=== PATIENT | female | born 1995 | race Caucasian/White ===

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

== ENCOUNTER → 2017-01-12 | Outpatient (CLI) | payer OTHER ==
[2017-01-17 08:14] LABS: T PALLIDUM ANTIBODIES Positive (Negative)
== END ==
LOC: M SMT 11:47
PROVIDERS: ATTEND Advanced Practice Midwife
DX: O98.111 Syphilis complicating pregnancy, first trimester (principal)

== ENCOUNTER → 2017-02-17 | Outpatient (CLI) | payer OTHER ==
--- NOTE | 2017-02-17 11:37 | REP ---
OBSTETRIC SONOGRAPHY: HISTORY: Supervision of for anatomy. FINDINGS: Scanning through the gravid uterus demonstrates a viable single intrauterine gestation in a cephalic lie. motion is observed and heart rate is recorder 147 beats per minute. An anterior grade 0 placenta is seen without evidence of previa or abruption. Amniotic fluid is subjectively normal. Closed cervical length is 4.9 cm. No extrauterine abnormality is observed. No anomaly is seen. The following anatomic structures are identified and felt to be sonographically unremarkable: cranium, choroid plexus, cavum, cerebellum and posterior fossa, nuchal fold face and profile, lungs, four-chamber heart with left and right ventricular outflow tract views, diaphragm, left-sided stomach, abdominal wall cord insertion, three-vessel umbilical cord, kidneys and bladder, spine, upper and lower extremities. Biometry Chart: BPD 4.0 cm = 18 weeks 1 day HC 14.6 cm = 17 weeks 6 days AC 12.3 cm = 18 weeks 0 days FL 2.5 cm = 17 weeks 4 days CD 1.8 cm = 17 weeks 5 days HC/AC ratio normal 1.2 Cephalic index normal 0.75. Estimated weight 211 grams, 0 pounds 7 ounces, 36th percentile for 18 weeks 1 day. IMPRESSION: Viable single intrauterine gestation at 17 weeks 6 days by today's composite sonographic criteria. MARINA by today's sonography July 22, 2017. No anomaly is seen.
== END ==
LOC: M WHC 10:14
PROVIDERS: ATTEND Advanced Practice Midwife
DX: Z34.82 Encounter for supervision of other normal pregnancy, second trimester (principal)

== ENCOUNTER → 2017-04-13 | Outpatient (CLI) | payer OTHER ==
[2017-04-13 13:48] LABS: BASO % 0.3 % (0.0-1.0); EOS # 0.1 K/mm3 (0.0-0.50); LARGE UNSTAINED CELL # 0.1 K/mm3 (0.0-0.4); LARGE UNSTAINED CELL % 0.8 % (0.0-4.0); LYMPH # 1.9 K/mm3 (1.5-6.5); MEAN CORPUSCULAR HEMOGLOBIN 32.8 pg (27.0-33.0); MEAN CORPUSCULAR HGB CONC 33.7 g/dl (32.0-36.5); MEAN CORPUSCULAR VOLUME 97.4 fl (80.0-96.0); MONO # 0.5 K/mm3 (0.0-0.8); MONO % 4.2 % (0.0-5.0); NEUTROPHILS # 8.5 K/mm3 (1.8-7.7); NEUTROPHILS % 76.8 % (36.0-66.0); PLATELET COUNT, AUTOMATED 244 k/mm3 (150-450); RED CELL DISTRIBUTION WIDTH 12.8 % (11.5-14.5); WHITE BLOOD COUNT 11.1 K/mm3 (4.0-10.0)
[2017-04-18 08:06] LABS: T PALLIDUM ANTIBODIES Positive (Negative)
== END ==
LOC: M SMT 09:18
PROVIDERS: ATTEND Advanced Practice Midwife
DX: Z34.83 Encounter for supervision of other normal pregnancy, third trimester (principal)

== ENCOUNTER 2017-05-18 13:23 | Outpatient (CLI) | payer OTHER ==
[~2017-05-18] VITALS: Ht 165.1 cm; Wt 55.0 kg
[2017-05-18] VITALS (7 sets, daily range): BP systolic 106–124; BP diastolic 63–80
[2017-05-18] MEDS ORDERED: PRE-TAB3 PO (13:50)
[2017-05-18 15:32] LABS: MEAN CORPUSCULAR HEMOGLOBIN 32.9 pg (27.0-33.0); MEAN CORPUSCULAR VOLUME 93.9 fl (80.0-96.0); RED CELL DISTRIBUTION WIDTH 12.8 % (11.5-14.5)
[2017-05-18 15:49] LABS: INR 1.01
[2017-05-18] MEDS ORDERED: BETAMETHASONE SOLUSPAN 6MG/ML INJ 5ML (J0702) IM SCH (16:00)
[2017-05-18] MEDS ORDERED: PENICILLIN G POTASSIUM IV 5 MU in D5W MINI-BAG PLUS 100 ML IV STA (16:01)
[2017-05-18] MEDS ORDERED: LACTATED RINGER'S 1000 ML IV STA (16:01)
[2017-05-18] MEDS ORDERED: LR 1,000 ML IV SCH (16:01)
[2017-05-18 16:14] LABS: ALBUMIN 2.8 GM/DL (3.2-5.2); ALKALINE PHOSPHATASE 94 U/L (45-117); ALT/SGPT 11 U/L (12-78); ANION GAP 6 MEQ/L (8-16); AST/SGOT 13 U/L (15-37); BILIRUBIN,TOTAL 0.3 MG/DL (0.2-1.0); BLOOD UREA NITROGEN 4 MG/DL (7-18); CALCIUM LEVEL 8.9 MG/DL (8.5-10.1); CARBON DIOXIDE LEVEL 26 MEQ/L (21-32); CHLORIDE LEVEL 107 MEQ/L (98-107); CREATININE FOR GFR 0.54 MG/DL (0.55-1.02); GLUCOSE, FASTING 76 MG/DL (70-105); POTASSIUM SERUM 3.9 MEQ/L (3.5-5.1); SODIUM LEVEL 139 MEQ/L (136-145); TOTAL PROTEIN 6.3 GM/DL (6.4-8.2)
[2017-05-18] MEDS ORDERED: PENICILLIN G POTASSIUM IV 2.5 MU in D5W 100 ML IV SCH (20:15)
[2017-05-23 08:11] LABS: T PALLIDUM ANTIBODIES Positive (Negative)
== END 2017-05-18 22:20 | disposition home or self-care (01) ==
LOC: M LDO 13:23
PROVIDERS: ATTEND Obstetrics & Gynecology
DX: O62.0 Primary inadequate contractions (principal); O26.879 Cervical shortening, unspecified trimester; Z3A.31 31 weeks gestation of pregnancy; O98.113 Syphilis complicating pregnancy, third trimester; A53.0 Latent syphilis, unspecified as early or late; O99.343 Other mental disorders complicating pregnancy, third trimester; F41.0 Panic disorder [episodic paroxysmal anxiety]; O99.333 Smoking (tobacco) complicating pregnancy, third trimester; F17.210 Nicotine dependence, cigarettes, uncomplicated; O99.013 Anemia complicating pregnancy, third trimester; D64.9 Anemia, unspecified
CPT/HCPCS: 36415; 59025; 76815; 80053; 81001; 85027; 85384; 85460; 85610; 85730; 86592; 86780; 86850; 86900; 86901; 87081; 87086; 87491; 87591; 96372; 96374; J0702

== ENCOUNTER 2017-05-19 17:00 | Outpatient (CLI) | payer OTHER ==
[~2017-05-19] VITALS: Ht 165.1 cm; Wt 55.0 kg
[~2017-05-19 17:00] MED LIST: PRE-TAB3 PO
[2017-05-19 17:34] VITALS: BP 117/70
[2017-05-19] MEDS ORDERED: BETAMETHASONE SOLUSPAN 6MG/ML INJ 5ML (J0702) IM ONE (18:15)
== END 2017-05-19 18:33 | disposition home or self-care (01) ==
LOC: M LDO 17:00
PROVIDERS: ATTEND Specialist
DX: O26.873 Cervical shortening, third trimester (principal); Z3A.31 31 weeks gestation of pregnancy
CPT/HCPCS: 96372; J0702

== ENCOUNTER → 2017-06-28 | Outpatient (CLI) | payer OTHER ==
[~2017-06-28] MED LIST changes: +ACET50TA PO; +FERR325T3 PO; +HYDR-3713 PO; +IBUP-1114 PO; +PRENTAB9 PO
[2017-07-05 08:06] LABS: T PALLIDUM ANTIBODIES Positive (Negative)
== END ==
LOC: M SMT 14:35
PROVIDERS: ATTEND Advanced Practice Midwife
DX: Z34.83 Encounter for supervision of other normal pregnancy, third trimester (principal)

== ENCOUNTER 2017-07-27 12:19 | Inpatient (IN) | payer OTHER ==
[~2017-07-27] VITALS: Ht 165.1 cm; Wt 65.0 kg
[2017-07-27] VITALS (31 sets, daily range): BP systolic 114–153; BP diastolic 68–96
[~2017-07-27 12:19] MED LIST changes: -ACET50TA PO; -FERR325T3 PO; -HYDR-3713 PO; -IBUP-1114 PO; -PRENTAB9 PO
[2017-07-27] MEDS ORDERED: FERR325T3 PO (13:22)
[2017-07-27] MEDS ORDERED: HYDR-3713 PO (13:22)
[2017-07-27] MEDS ORDERED: PRENTAB9 PO (13:22)
[2017-07-27] MEDS ORDERED: LR 1,000 ML IV SCH (14:02)
[2017-07-27] MEDS ORDERED: OXYTOCIN DRIP 30 UNITS in APPROPRIATE DILUENT 1 EA IV SCH (14:15)
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
[2017-07-27 15:00] LABS: MEAN CORPUSCULAR HEMOGLOBIN 32.1 pg (27.0-33.0); MEAN CORPUSCULAR HGB CONC 34.1 g/dl (32.0-36.5); MEAN CORPUSCULAR VOLUME 94.2 fl (80.0-96.0); RED CELL DISTRIBUTION WIDTH 14.1 % (11.5-14.5); WHITE BLOOD COUNT 13.9 10^3/uL (4.0-10.0)
[2017-07-27] MEDS ORDERED: FENTANYL 2MCG/ML ROPIVACAINE 0.2% IN 0.9% NACL 200ML IVBAG As Ordered ONE (21:33)
[2017-07-27] MEDS ORDERED: diphenhydrAMINE INJ 50MG/ML VIAL (J1200) IV PRN (22:00)
[2017-07-27] MEDS ORDERED: ONDANSETRON 4MG/2ML VIAL (J2405) IV PRN (22:00)
[2017-07-27] MEDS ORDERED: EPIDURAL COMMENT XX SCH (22:00)
[2017-07-27] MEDS ORDERED: NALOXONE INJ 0.4 MG/1 ML VIAL (J2310) IV PRN (22:00)
[2017-07-27] MEDS ORDERED: LACTATED RINGER'S 1000 ML IV PRN (22:00)
[2017-07-27] MEDS ORDERED: FENTANYL/ROPIVACAINE/NACL BAG 200 ML EPIDURAL SCH (22:00)
[2017-07-27] MEDS ORDERED: ePHEDrine SULFATE 25 MG/5 ML(5MG/ML) SYRINGE IV PRN (22:00)
[2017-07-27] MEDS ORDERED: EPIDURAL/PCA KEYS XX PRN (22:00)
[2017-07-27] MEDS ORDERED: REFRIGERATOR IV KEYS XX PRN (22:00)
[2017-07-28 00:29] VITALS: BP 132/71
[2017-07-28 00:44] VITALS: BP 128/81
[2017-07-28 00:58] LABS: CORD GAS ABE A -7.1; CORD GAS HCO3 A 22.6 MEQ/L; CORD GAS O2 SAT A 28.3 %; CORD GAS PCO2 A 63.1 mmHg; CORD GAS PH A 7.171 UNITS; CORD GAS PO2 A 16.3 mmHg; CORD GAS SBC A 17.2 MEQ/L; CORD GAS TCO2 A 24.5 MEQ/L
[2017-07-28 00:59] VITALS: BP 129/72
[2017-07-28 01:00] LABS: CORD GAS ABE V -3.9; CORD GAS HCO3 V 22.9 MEQ/L; CORD GAS O2 SAT V 52.2 %; CORD GAS PCO2 V 48.2 mmHg; CORD GAS PH V 7.295 UNITS; CORD GAS PO2 V 22.4 mmHg; CORD GAS SBC V 20.2 MEQ/L; CORD GAS TCO2 V 24.4 MEQ/L
[2017-07-28] MEDS ORDERED: OXYTOCIN DRIP 30 UNITS in APPROPRIATE DILUENT 1 EA IV SCH (01:18)
[2017-07-28] MEDS ORDERED: DIBUCAINE 1% OINTMENT 30GM TOP PRN (01:30)
[2017-07-28] MEDS ORDERED: MEASLES,MUMPS,RUBELLA VACCINE INJ (MMR-II) (90707) SC SCH (01:30)
[2017-07-28] MEDS ORDERED: ACETAMINOPHEN 500 MG TAB PO PRN (01:30)
[2017-07-28] MEDS ORDERED: ANUSOL HC CREAM 30GM TOP PRN (01:30)
[2017-07-28] MEDS ORDERED: RHOGAM 300 MCG (1500 IU) INJ (J2790) IM SCH (01:30)
[2017-07-28] MEDS ORDERED: METHYLERGONOVINE MALEATE 0.2 MG TAB PO PRN (01:30)
[2017-07-28] MEDS ORDERED: DOCUSATE SODIUM 100 MG CAP PO PRN (01:30)
[2017-07-28] MEDS ORDERED: LIDOCAINE 1% MDV INJ 50 ML VIAL INFIL ONE (01:30)
[2017-07-28] MEDS ORDERED: ONDANSETRON 4MG/2ML VIAL (J2405) IV PRN (01:30)
[2017-07-28 02:15] VITALS: BP 124/74
--- NOTE | 2017-07-28 03:46 | DN ---
DATE OF SERVICE: 07/28/2017 Marina is a 22-year-old 1, para 1-0-0-1 now, who was admitted to labor and delivery for induction of labor due to post-term . Intravenous (IV) Pitocin was used and labor did ensue. She did utilize an epidural for her labor coping. She progressed to full dilation at 2316. She pushed to a normal spontaneous vaginal delivery of a live female in occiput anterior (OA) position with restitution to right occiput transverse (ROT) position at 0024. There was not a nuchal cord. However, there was a cord draped over the left shoulder. Shoulders delivered with gentle downward traction and the corpus immediately followed. The was placed on maternal abdomen crying and active. Her mouth and nares were bulb suctioned. Cord was clamped times two and cut by the father of the baby. A spontaneous expulsion of an intact placenta with three-vessel cord by Raygoza mechanism was at 0034. Uterine hemostasis was achieved with IV Pitocin rapid infusion and uterine fundal massage. Estimated blood loss 350 mL. Perineum and vagina were inspected, noted to have bilateral labial lacerations. The lacerations were infiltrated with 1% lidocaine and repaired with 3-0 Rapide in the usual fashion. [place] female weighed 7 pounds 15 ounces, 3610 grams, scores 8 and 9. Family have named their daughter Princess. Mom plans to breastfeed. At the close of delivery, lap counts, needle counts, and instrument counts were correct and verified. The delivery was performed by Torrie Zheng, student nurse clergy member under my direct supervision.
[2017-07-28 05:40] VITALS: BP 122/65
[2017-07-28] MEDS: PRENATAL VITAMINS CHEWABLE TABLET PO SCH ×2 (07:06→08:27)
[2017-07-28] MEDS: IBUPROFEN 800 MG TAB PO PRN ×2 (08:30→18:04)
[2017-07-28 18:16] VITALS: BP 121/65
[2017-07-29] MEDS: IBUPROFEN 800 MG TAB PO PRN ×2 (01:49→10:28)
[2017-07-29 06:09] VITALS: BP 111/53
--- NOTE | 2017-07-29 07:20 | IPNPDOC ---
Date Seen The patient was seen on 07/29/17. Progress Note PPD #1 Feels well. Adequate pain management. Breast and bottle feeding. Voiding QS VSS Breasts soft, nipples intact Fundus firm, NT, down 1 FB Lochia rubra light without odor Perineum well approximated witout edema A: PPD #1, early nursing needs assist P: ROutine care. Enc pt to request help with latch today. Anticipate D/C in am VS, I&O, 24H, Fishbone Vital Signs/I&O Vital Signs Date Time Temp Pulse Resp B/P (MAP) Pulse Ox O2 Delivery O2 Flow Rate FiO2 07/29/17 06:09 98.7 87 16 111/53 (72) 07/28/17 05:40 96 Room Air Anu Jay CNM Jul 29, 2017 07:20
[2017-07-29] MEDS ORDERED: ADACEL/BOOSTRIX VACCINE (DIPHTH/PERTUSS/ACELL/TETANUS)0.5ML SYR (90715) IM ONE (09:00)
[2017-07-29] MEDS: PRENATAL VITAMINS CHEWABLE TABLET PO SCH (09:00)
[2017-07-29] MEDS ORDERED: ACET50TA PO (14:46)
[2017-07-29] MEDS ORDERED: IBUP-1114 PO (14:46)
[2017-08-01 08:07] LABS: T PALLIDUM ANTIBODIES Positive (Negative)
== END 2017-07-29 16:20 | disposition home or self-care (01) | DRG 775 ==
LOC: M LDI 12:19 → M OBS 07-28 02:12
PROVIDERS: ADMIT Advanced Practice Midwife; ATTEND Advanced Practice Midwife
PROC: 3E033VJ Introduction of Other Hormone into Peripheral Vein, Percutaneous Approach (ICD-10-PCS; 2017-07-27)
PROC: 10E0XZZ Delivery of Products of Conception, External Approach (ICD-10-PCS; principal; 2017-07-28)
PROC: 0HQ9XZZ Repair Perineum Skin, External Approach (ICD-10-PCS; 2017-07-28)
DX: O48.0 Post-term pregnancy (principal); Z37.0 Single live birth; Z3A.41 41 weeks gestation of pregnancy; F41.9 Anxiety disorder, unspecified; F17.200 Nicotine dependence, unspecified, uncomplicated; Z79.899 Other long term (current) drug therapy; O69.82X0 Labor and delivery complicated by other cord entanglement, without compression, not applicable or unspecified; O70.0 First degree perineal laceration during delivery; O99.344 Other mental disorders complicating childbirth; O99.334 Smoking (tobacco) complicating childbirth

== ENCOUNTER → 2017-08-21 | Outpatient (REF) | payer OTHER ==
[~2017-08-21] MED LIST changes: +ACET50TA PO; +FERR325T3 PO; +HYDR-3713 PO; +IBUP-1114 PO; +PRENTAB9 PO
== END ==
LOC: M LAB REF 17:18
PROVIDERS: ATTEND Obstetrics & Gynecology
DX: N76.4 Abscess of vulva (principal)

== ENCOUNTER 2017-09-30 19:05 | Emergency (ER) | payer OTHER ==
[~2017-09-30] VITALS: Ht 165.1 cm; Wt 56.8 kg
[2017-09-30] MEDS ORDERED: KETOROLAC 30 MG/ML VIAL (J1885) IV ONE (20:15)
[2017-09-30] MEDS ORDERED: NS 1,000 ML IV ONE (20:15)
[2017-09-30 20:36] LABS: BASO % 0.4 % (0.0-1.0); EOS # 0.1 10^3/uL (0.0-0.50); EOS % 1.3 % (0.0-3.0); IMMATURE GRANULOCYTE % 0.1 % (0-0); LYMPH # 3.1 10^3/uL (1.5-6.5); LYMPH % 34.6 % (24.0-44.0); MEAN CORPUSCULAR HEMOGLOBIN 31.3 pg (27.0-33.0); MEAN CORPUSCULAR HGB CONC 34.1 g/dl (32.0-36.5); MEAN CORPUSCULAR VOLUME 91.6 fl (80.0-96.0); MONO # 0.6 10^3/uL (0.0-0.8); MONO % 6.9 % (0.0-5.0); NEUTROPHILS # 5.1 10^3/uL (1.8-7.7); NEUTROPHILS % 56.7 % (36.0-66.0); PLATELET COUNT, AUTOMATED 215 10^3/uL (150-450); RED CELL DISTRIBUTION WIDTH 12.3 % (11.5-14.5); WHITE BLOOD COUNT 9.1 10^3/uL (4.0-10.0)
[2017-09-30 20:52] LABS: ALBUMIN/GLOBULIN RATIO 1.11 (1.00-1.93); ALKALINE PHOSPHATASE 58 U/L (45-117); ALT/SGPT 19 U/L (12-78); ANION GAP 5 MEQ/L (8-16); AST/SGOT 13 U/L (7-37); BILIRUBIN,DIRECT 0.1 MG/DL (0.0-0.2); BILIRUBIN,TOTAL 0.6 MG/DL (0.2-1.0); BLOOD UREA NITROGEN 7 MG/DL (7-18); CALCIUM LEVEL 8.8 MG/DL (8.5-10.1); CARBON DIOXIDE LEVEL 29 MEQ/L (21-32); CHLORIDE LEVEL 108 MEQ/L (98-107); CREATININE FOR GFR 0.73 MG/DL (0.55-1.02); GLUCOSE, FASTING 82 MG/DL (70-105); POTASSIUM SERUM 3.7 MEQ/L (3.5-5.1); SODIUM LEVEL 142 MEQ/L (136-145); TOTAL PROTEIN 7.6 GM/DL (6.4-8.2)
[2017-09-30 21:00] LABS: ERYTHROCYTE SEDIMENTATION RATE 6 mm/hr (0-20)
[2017-09-30] MEDS ORDERED: MIRA3350 PO (21:46)
[2017-09-30] MEDS ORDERED: FIOR1CAP PO (21:46)
[2017-09-30] MEDS ORDERED: FIORICET TAB PO ONE (22:15)
[2017-09-30 22:19] VITALS: BP 119/68
--- NOTE | 2017-10-01 08:54 | REP ---
KUB, ONE VIEW: HISTORY: Abdominal pain. A small amount of air is present in small and large intestine. There are no air fluid levels or dilated loops of intestine. There is no pneumoperitoneum. IMPRESSION: Nonspecific bowel gas pattern. Signed by Tae Rhoades MD 10/01/2017 09:28 A
== END 2017-09-30 22:29 | disposition home or self-care (01) ==
LOC: M ED 19:05
DX: K59.00 Constipation, unspecified (principal); R51 Headache
CPT/HCPCS: 36415; 74000; 80048; 80076; 81001; 81025; 83690; 85025; 85652; 86140; 96374; 99284; J1885

== ENCOUNTER 2017-10-07 12:58 | Emergency (ER) | payer OTHER ==
[~2017-10-07] VITALS: Ht 165.1 cm; Wt 56.8 kg
[~2017-10-07 12:58] MED LIST changes: +FIOR1CAP PO; +MIRA3350 PO
[2017-10-07] MEDS ORDERED: PERCOCET 5MG/325MG TAB PO ONE (14:15)
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
[2017-10-07 14:50] VITALS: BP 128/84
== END 2017-10-07 15:03 | disposition home or self-care (01) ==
LOC: M ED 12:58
DX: S90.32XA Contusion of left foot, initial encounter (principal); V09.00XA Pedestrian injured in nontraffic accident involving unspecified motor vehicles, initial encounter; Y92.481 Parking lot as the place of occurrence of the external cause; Y93.89 Activity, other specified; Y99.8 Other external cause status; F17.210 Nicotine dependence, cigarettes, uncomplicated